=== PATIENT | male | born 1965 | race Asian ===

== ENCOUNTER 2019-02-06 14:09 | Outpatient (CLI) | payer OTHER ==
[~2019-02-06 14:09] MED LIST: Iopamidol 370 76% 100 ML VIAL ONE
--- NOTE | 2019-02-06 15:56 | CT ---
CT NECK WITH CONTRAST: 02/06/19 Axial tomograms are obtained with multiplanar reconstruction. INDICATIONS: Palpable left side of neck. Area of concern is marked with skin marker. No comparison. FINDINGS: Parotid glands appear unremarkable and symmetric. There is asymmetric enlargement and heterogeneity involving the left submandibular gland. This corres ponds to the site of palpable abnormality. There is a cystic component in this heterogeneous gland po steriorly which measures up to 2.0 cm. The right submandibular gland appears unremarkable. Thyroid unremarkable. Nasopharynx unremarkable. Base of tongue and oropharynx unremarkable. Waldeyer's ring appears symmetric. Hypopharynx unremarkable. Larynx unremarkable. No evidence of level I or level II adenopathy. Nonspecific level II lymph nodes are seen measuring 1 to 1.2 cm. No evidence of level II or level IV or level V adenopathy. The loans officer space, parapharyngeal space, and retropharyngeal space unremarkable. Cervical spine unremarkable. The visualized paranasal sinuses appear clear. IMPRESSION: The left submandibular gland is enlarged and heterogeneous with a large cystic component seen posteri aurelia. Findings may be on the basis of sialadenitis; however, neoplasm is not excluded. Recommend ENT consultation. POS: OFF
== END 2019-02-06 14:10 | disposition home or self-care (01) ==
LOC: BICCT 14:09
PROVIDERS: ATTEND Student in an Organized Health Care Education/Training Program
DX: R22.1 Localized swelling, mass and lump, neck (principal)
CPT/HCPCS: 70491; Q9967

== ENCOUNTER → 2019-02-21 | Day surgery (SDC) | payer OTHER ==
[2019-02-20 16:02] VITALS: BMI 31.8
[~2019-02-21] MED LIST changes: -Iopamidol 370 76% 100 ML VIAL ONE; +Lidocaine 1% PF 5 ML VIAL ONE
[2019-02-21 14:00] VITALS: BP 174/111; TEMP 98.1
--- NOTE | 2019-02-21 14:13 | ULT ---
EXAM: US Soft Tissue Other PROVIDED CLINICAL HISTORY: Mass in left submandibular gland COMPARISON: CT neck on 02/06/2019 FINDINGS: Patient presents for ultrasound-guided biopsy of a right submandibular mass. However, due to patient' s significantly elevated blood pressure with diastolic pressure of 122 mmHg, biopsy was not performed at this time. Findings of the patient's significantly elevated blood pressure was discussed with Dr. Bain's diagnostic assistant by Lesli, radiology nurse at this time. After treatment of patient's hypertension, ultrasound guided biopsy of the mass in the left submandibular gland can be rescheduled . Limited sonographic images demonstrate a hypoechoic mass in the region of the left submandibular glan d which measures 3.9 cm x 3.9 cm x 2.8 cm. IMPRESSION: 1. Hypoechoic mass left submandibular gland corresponding to findings on recent CT exam. Biopsy was n ot performed on today's date due to patient's significantly elevated blood pressure. After treatment of patient's hypertension, an ultrasound-guided biopsy/aspiration of the left submandibular mass can be performed.
== END ==
LOC: ULT 11:26
PROVIDERS: ATTEND Student in an Organized Health Care Education/Training Program
PROC: BH4CZZZ Ultrasonography of Head and Neck (ICD-10-PCS; principal; 2019-02-21)
PROC: 0JJS3ZZ Inspection of Head and Neck Subcutaneous Tissue and Fascia, Percutaneous Approach (ICD-10-PCS; principal; 2019-02-21)
DX: K11.8 Other diseases of salivary glands (principal); F17.220 Nicotine dependence, chewing tobacco, uncomplicated
CPT/HCPCS: 76999; J2001

== ENCOUNTER 2019-11-21 08:08 | Outpatient (CLI) | payer OTHER ==
--- NOTE | 2019-11-21 11:12 | CT ---
CT ABDOMEN AND PELVIS WITH AND WITHOUT IV CONTRAST: DATE: 11/21/2019. PROVIDED CLINICAL HISTORY: Hematuria. FINDINGS: The visualized lung bases are free of significant opacity. There is a diminutive right kidney, measuring about 4 cm in craniocaudal dimension. There is a 7-8 m m calculus at the mid portion of the right kidney. There is an extrarenal pelvis without evidence fo r hydronephrosis. The left kidney measures approximately 12.3 cm in craniocaudal dimension and demonstrates no evidence for hydronephrosis or mass. No additional urinary tract calculi are evident. The delayed images de monstrate no evidence for a filling defect involving the opacified ureters, collecting systems, or ur inary bladder. There is minimal excretion of contrast material into the right renal collecting syste m. The right ureter is not opacified. The liver, spleen, pancreas, and adrenal glands appear unremarkable. There is no bowel dilatation, inflammatory fat stranding, or free fluid apparent. There are prominent by number and borderline enlarged lymph nodes within the central small bowel mese ntery. No additional lymph node abnormality is evident. The osseous structures demonstrate no concerning lytic or blastic lesions. A nondisplaced L5 pars de fect right of midline. IMPRESSION: 1. Diminutive right kidney with 7-8 mm right renal calculus. Minimal excretion of contrast into the right renal collecting system and nonopacification of the right ureter limit evaluation. 2. Haziness of the central small bowel mesentery with an associated prominent by number and occasion ally borderline enlarged lymph nodes, nonspecific. This can be seen in the setting of sclerosing mes enteritis, mesenteric adenitis, and less commonly in lymphoproliferative disorders. POS: JAZMIN
== END 2019-11-21 08:09 | disposition home or self-care (01) ==
LOC: SCSCT 08:08
PROVIDERS: ATTEND Urology
DX: R31.9 Hematuria, unspecified (principal); N20.0 Calculus of kidney; R59.0 Localized enlarged lymph nodes
CPT/HCPCS: 74178; 82565